=== PATIENT | male | born 1990 | race Caucasian/White ===

== ENCOUNTER 2016-07-10 05:14 | Emergency (ER) | payer SELFPAY ==
[~2016-07-10] VITALS: Ht 177.8 cm; Wt 72.0 kg
[~2016-07-10 05:14] MED LIST: ALBU6.7H INH; PRED20 PO; ZITH250T PO
[2016-07-10 05:17] VITALS: BP 119/77; PULSE 82; RESP 14; TEMP 98.1; O2SAT 99
[2016-07-10] MEDS ORDERED: SODIUM CHLOR 0.9% 1000 ML INJ 1,000 ML IV ONE ×2 (05:33→05:45)
[2016-07-10] MEDS ORDERED: PROCHLORPERAZINE INJ 10 MG/2 ML VIAL IVP ONE (05:45)
[2016-07-10] MEDS ORDERED: SODIUM CHLORIDE 0.9% FLUSH 5 ML FLUSH IVF PRN (05:45)
[2016-07-10] MEDS ORDERED: LIDOCAINE VISCOUS 2% SOLN 15 ML UDC PO ONE (05:45)
[2016-07-10] MEDS ORDERED: ALUMINUM/MAGNESIUM/SIMETH 30 ML CUP PO ONE (05:45)
[2016-07-10] MEDS ORDERED: ZOFR4TAB3 SL (05:47)
--- NOTE | 2016-07-10 05:48 | PD ---
HPI Chief Complaint: GI Complaint Time Seen by Provider: 05:28 Travel History International Travel<30 days: No Contact w/Intl Traveler<30days: No Traveled to known affect area: No History of Present Illness HPI 25-year-old male arrives with a few hours of nausea vomiting diarrhea. He's had no fever. Generalized abdominal pain is present. He ate [employer] twice yesterday. He was in contact with some sick young family members who have similar symptoms. The stool and emesis were nonbloody. PFSH Past Medical History ADHD: No Bipolar Disorder: Yes Cancer: No Cardiovascular Problems: No Diabetes: No Diminished Hearing: No Psychiatric: Yes (HISTORY OF BIPOLAR DISORDER.) Migraines: No Seizures: No Thyroid Disease: No Ulcer: No Past Surgical History Appendectomy: No Cholecystectomy: No Other Surgery: No Social History Alcohol Use: No Tobacco Use: Yes (1 PK DAILY) Substance Use: Yes (MELLO) Allergies-Medications (Allergen,Severity, Reaction): Coded Allergies: No Known Allergies (Verified , 07/10/16) Reported Meds & Prescriptions Reported Meds & Active Scripts Active Zofran Odt (Ondansetron Odt) 4 Mg Tab 4 Mg SL Q8HR PRN Review of Systems Except as stated in HPI: all other systems reviewed are Neg Physical Exam Narrative GENERAL: 25 yo F, WNWD, NAD SKIN: Warm and dry. HEAD: Atraumatic. Normocephalic. EYES: Pupils equal and round. No scleral icterus. No injection or drainage. ENT: No nasal bleeding or discharge. Mucous membranes pink and moist. NECK: Trachea midline. No JVD. CARDIOVASCULAR: Regular rate and rhythm. RESPIRATORY: No accessory muscle use. Clear to auscultation. Breath sounds equal bilaterally. GASTROINTESTINAL: Abdomen soft, non-tender, nondistended. Hepatic and splenic margins not palpable. MUSCULOSKELETAL: Extremities without clubbing, cyanosis, or edema. No obvious deformities. NEUROLOGICAL: Awake and alert. No obvious cranial nerve deficits. Motor grossly within normal limits. Five out of 5 muscle strength in the arms and legs. Normal speech. PSYCHIATRIC: Appropriate mood and affect; insight and judgment normal. Data Data Last Documented VS Vital Signs Date Time Temp Pulse Resp B/P Pulse Ox O2 Delivery O2 Flow Rate FiO2 07/10/16 05:17 98.1 82 14 119/77 99 Room Air VS noted Orders Iv Access Insert/Monitor (07/10/16 05:33) Oximetry (07/10/16 05:33) Sodium Chloride 0.9% Flush (Ns Flush) (07/10/16 05:45) Prochlorperazine Inj (Compazine Inj) (07/10/16 05:45) Sodium Chlor 0.9% 1000 Ml Inj (Ns 1000 M (07/10/16 05:33) Sodium Chlor 0.9% 1000 Ml Inj (Ns 1000 M (07/10/16 05:45) Al-Mag Hy-Si 40-40-4 Mg/Ml Liq (Mag-Al P (07/10/16 05:45) Lidocaine 2% Viscous (Xylocaine 2% Visco (07/10/16 05:45) MDM Medical Decision Making Medical Screen Exam Complete: Yes Emergency Medical Condition: Yes Medical Record Reviewed: Yes Differential Diagnosis Constipation, Gastritis, Acute Cholecystitis, Biliary Colic, Pancreatitis, DAMON , Hepatitis, Bowel Obstruction, Cystitis, Mesenteric Ischemia, AAA, Appendicitis , Renal Stone/Hydronephrosis, GERD, perforated viscous Narrative Course The patient received IV fluids and antiemetics. The patient is resting comfortably and feels better, is alert and in no distress. The patients results and examination findings were discussed. The repeat examination is unremarkable and benign. The history, exam, diagnostic testing, and current condition do not suggest any significant pathology to warrant further testing, continued ED treatment, admission, or surgical evaluation at this point. The vital signs have been stable. The patient does not have uncontrollable pain, intractable vomiting, or other significant symptoms. The patient's condition is stable and appropriate for discharge. The patient will pursue further outpatient evaluation with a primary care physician or other designated or consulting physician as indicated in the discharge instructions. The patient expressed understanding and was agreeable with this plan. Diagnosis Primary Impression: Nausea vomiting and diarrhea Referrals: Primary Care Physician call for appointment Additional Instructions: You have a choice when it comes to health care, and we are glad that you chose [facility]. Hopefully, we have met your expectations on today's visit. You are welcome to return to [facility] at any time, as we are committed to meeting the health care needs of our community. Med/Other Pt SpecificInfo: Prescription(s) given Scripts Ondansetron Odt (Zofran Odt)4 Mg Tab4 Mg SL Q8HR PRN (Nausea/Vomiting) #10 TAB Ref 0 Prov:Jef Ho MD 07/10/16 Disposition: 01 DISCHARGE HOME Condition: Stable Jef Ho MD Jul 10, 2016 05:48
[2016-07-10 06:49] VITALS: BP 124/89
== END 2016-07-10 06:49 | disposition home or self-care (01) ==
LOC: NEPC 05:14
DX: R11.2 Nausea with vomiting, unspecified (principal); R19.7 Diarrhea, unspecified; R10.84 Generalized abdominal pain; F17.200 Nicotine dependence, unspecified, uncomplicated; Z86.59 Personal history of other mental and behavioral disorders
CPT/HCPCS: 96361; 96374; 99283; J0780; J7030

== ENCOUNTER 2016-07-31 12:42 | Emergency (ER) | payer SELFPAY ==
[~2016-07-31] VITALS: Ht 177.8 cm; Wt 72.7 kg
[~2016-07-31 12:42] MED LIST changes: -ALBU6.7H INH; -PRED20 PO; -ZITH250T PO; +ZOFR4TAB3 SL
[2016-07-31 12:44] VITALS: BP 151/77; PULSE 88; RESP 20; TEMP 98.1; O2SAT 99
--- NOTE | 2016-07-31 14:30 | PD ---
HPI Chief Complaint: Anxiety Time Seen by Provider: 14:29 Travel History International Travel<30 days: No Contact w/Intl Traveler<30days: No Traveled to known affect area: No History of Present Illness HPI 25-year-old male with history anxiety presents to the emergency department for evaluation of what he believes was an anxiety attack. Patient states right now he feels "fine." He states he's been battling with anxiety lately. He has not sought any assistance in managing his anxiety. States sometimes he feels that he is losing his mind. Denies suicidal or homicidal ideations. Patient also makes mention some sinus congestion and posterior nasal drip over the last week. No fever or chills. No cough or chest congestion. Has no other symptoms to report History Past Medical Histgory Medical History: Denies Significant Hx Hx Cancer: No Social History Alcohol Use: No Tobacco Use: Yes (1 PK DAILY) Allergies-Medications (Allergen,Severity, Reaction): Coded Allergies: No Known Allergies (Verified , 07/10/16) Reported Meds & Prescriptions Reported Meds & Active Scripts Active Zofran Odt (Ondansetron Odt) 4 Mg Tab 4 Mg SL Q8HR PRN Review of Systems Except as stated in HPI: all other systems reviewed are Neg Physical Exam Narrative GENERAL: Well-nourished, well-developed male patient, ambulatory in no acute distress SKIN: Warm and dry. HEAD: Normocephalic. EYES: No scleral icterus. No injection or drainage. ENT: Mucosa pink and moist. No erythema or exudates. No uvular edema. No uvular , palatal, or tonsillar deviation. Airway patent. Nasal turbinates appear inflamed without nasal blood, purulent drainage or septal hematoma. NECK: Supple, trachea midline. No JVD or lymphadenopathy. CARDIOVASCULAR: Regular rate and rhythm without murmurs, gallops, or rubs. RESPIRATORY: Breath sounds equal bilaterally. No accessory muscle use. GASTROINTESTINAL: Abdomen soft, non-tender, nondistended. MUSCULOSKELETAL: No cyanosis, or edema. BACK: Nontender without obvious deformity. No CVA tenderness. Data Data Last Documented VS Vital Signs Date Time Temp Pulse Resp B/P Pulse Ox O2 Delivery O2 Flow Rate FiO2 07/31/16 12:44 98.1 88 20 151/77 99 Room Air MDM Medical Screen Exam Complete: Yes Emergency Medical Condition: No Differential Diagnosis anxiety; viral sinusitis Narrative Course 25-year-old male presents to emergency department for evaluation of a panic attack which has now resolved. At this time he appears well and without distress. He confirms that he has no current symptoms. At this time there are no urgent or emergent needs for medical intervention identified. A medical screening exam was performed: At the time of evaluation the presenting medical condition was determined not to be of an emergent nature. The patient was given the option of receiving additional care, but declined. Patient was given options for additional community resources from which to obtain care. The Patient Has Been advised to seek medical attention for their presenting complaint. The patient has been advised to return to the ER at any time if an emergent condition develops. Primary Impression: Encounter for medical screening examination Condition: Lalitha Haley Jul 31, 2016 14:30
== END 2016-07-31 14:37 | disposition left against medical advice (07) ==
LOC: NETRI 12:42
DX: F41.0 Panic disorder [episodic paroxysmal anxiety] (principal); F17.210 Nicotine dependence, cigarettes, uncomplicated
CPT/HCPCS: 99281

== ENCOUNTER 2017-01-03 05:35 | Emergency (ER) | payer SELFPAY ==
[~2017-01-03] VITALS: Ht 170.2 cm; Wt 76.0 kg
[2017-01-03 05:37] VITALS: BP 129/85; PULSE 73; RESP 16; TEMP 98.3; O2SAT 99
--- NOTE | 2017-01-03 05:58 | PD ---
HPI Chief Complaint: Anxiety Time Seen by Provider: 05:42 Travel History International Travel<30 days: No Contact w/Intl Traveler<30days: No Traveled to known affect area: No History of Present Illness HPI PATIENT COMES IN COMPLAINING OF PALPITATIONS AND ANXIOUSNESS. STATES THAT HE IS THE SOLE FINANCIAL "BREADWINNER" NOW THAT HIS MOM WAS DIAGNOSED WITH CANCER. HOWEVER DENIES SI/HI PFSH Past Medical History ADHD: No Bipolar Disorder: Yes Cancer: No Cardiovascular Problems: No Diabetes: No Diminished Hearing: No Psychiatric: Yes (HISTORY OF BIPOLAR DISORDER.) Migraines: No Seizures: No Thyroid Disease: No Ulcer: No Past Surgical History Surgical History: No Previous Surgery Appendectomy: No Cholecystectomy: No Other Surgery: No Social History Alcohol Use: No Tobacco Use: Yes (1 PK DAILY) Substance Use: Yes (MELLO) Allergies-Medications (Allergen,Severity, Reaction): Coded Allergies: No Known Allergies (Verified , 01/03/17) Reported Meds & Prescriptions Reported Meds & Active Scripts Active Zofran Odt (Ondansetron Odt) 4 Mg Tab 4 Mg SL Q8HR PRN Review of Systems Psychiatric: Positive: Anxiety Physical Exam Narrative GENERAL: SKIN: Warm and dry. HEAD: Atraumatic. Normocephalic. EYES: Pupils equal and round. No scleral icterus. No injection or drainage. ENT: No nasal bleeding or discharge. Mucous membranes pink and moist. NECK: Trachea midline. No JVD. CARDIOVASCULAR: Regular rate and rhythm. BUT TACHYCARDIC RESPIRATORY: No accessory muscle use. Clear to auscultation. Breath sounds equal bilaterally. GASTROINTESTINAL: Abdomen soft, non-tender, nondistended. Hepatic and splenic margins not palpable. MUSCULOSKELETAL: Extremities without clubbing, cyanosis, or edema. No obvious deformities. NEUROLOGICAL: Awake and alert. No obvious cranial nerve deficits. Motor grossly within normal limits. Five out of 5 muscle strength in the arms and legs. Normal speech. PSYCHIATRIC: ANXIOUS, BUT insight and judgment normal. Data Data Last Documented VS Vital Signs Date Time Temp Pulse Resp B/P Pulse Ox O2 Delivery O2 Flow Rate FiO2 01/03/17 05:45 119 16 01/03/17 05:37 98.3 129/85 99 Orders Electrocardiogram (01/03/17 05:43) Complete Blood Count With Diff (01/03/17 05:43) Comprehensive Metabolic Panel (01/03/17 05:43) Urinalysis - C+S If Indicated (01/03/17 05:43) Thyroid Stimulating Hormone (01/03/17 05:43) Chest, Single Ap (01/03/17 05:43) Drug Screen, Random Urine (01/03/17 05:43) Alcohol (Ethanol) (01/03/17 05:43) Salicylates (Aspirin) (01/03/17 05:43) Tylenol (Acetaminophen) (01/03/17 05:43) Sodium Chlor 0.9% 1000 Ml Inj (Ns 1000 M (01/03/17 06:00) Lorazepam Inj (Ativan Inj) (01/03/17 06:00) Labs Laboratory Tests Test 01/03/17 06:00 White Blood Count 12.0 TH/MM3 Red Blood Count 5.08 MIL/MM3 Hemoglobin 15.3 GM/DL Hematocrit 43.8 % Mean Corpuscular Volume 86.3 FL Mean Corpuscular Hemoglobin 30.1 PG Mean Corpuscular Hemoglobin 34.9 % Concent Red Cell Distribution Width 12.5 % Platelet Count 231 TH/MM3 Mean Platelet Volume 9.4 FL Neutrophils (%) (Auto) 48.3 % Lymphocytes (%) (Auto) 39.3 % Monocytes (%) (Auto) 7.4 % Eosinophils (%) (Auto) 4.1 % Basophils (%) (Auto) 0.9 % Neutrophils # (Auto) 5.8 TH/MM3 Lymphocytes # (Auto) 4.7 TH/MM3 Monocytes # (Auto) 0.9 TH/MM3 Eosinophils # (Auto) 0.5 TH/MM3 Basophils # (Auto) 0.1 TH/MM3 CBC Comment DIFF FINAL Differential Comment Urine Color YELLOW Urine Turbidity CLEAR Urine pH 6.0 Urine Specific [place] 1.038 Urine Protein 30 mg/dL Urine Glucose (UA) NEG mg/dL Urine Ketones NEG mg/dL Urine Occult Blood NEG Urine Nitrite NEG Urine Bilirubin NEG Urine Urobilinogen 2.0 MG/DL Urine Leukocyte Esterase NEG Urine RBC 1 /hpf Urine WBC 2 /hpf Urine Squamous Epithelial <1 /hpf Cells Urine Calcium Oxalate Crystals OCC /hpf Urine Bacteria RARE /hpf Urine Mucus FEW /lpf Microscopic Urinalysis Comment CULT NOT INDICATED Sodium Level 139 MEQ/L Potassium Level 3.4 MEQ/L Chloride Level 106 MEQ/L Carbon Dioxide Level 24.7 MEQ/L Anion Gap 8 MEQ/L Blood Urea Nitrogen 12 MG/DL Creatinine 1.16 MG/DL Estimat Glomerular Filtration 76 ML/MIN Rate Random Glucose 108 MG/DL Calcium Level 8.7 MG/DL Total Bilirubin 0.5 MG/DL Aspartate Amino Transf 26 U/L (AST/SGOT) Alanine Aminotransferase 35 U/L (ALT/SGPT) Alkaline Phosphatase 64 U/L Total Protein 7.0 GM/DL Albumin 4.1 GM/DL Thyroid Stimulating Hormone 0.959 uIU/ML 3rd Gen Salicylates Level 2.0 MG/DL Urine Opiates Screen NEG Acetaminophen Level LESS THAN 2.0 MCG/ML Urine Barbiturates Screen NEG Urine Amphetamines Screen NEG Urine Benzodiazepines Screen NEG Urine Cocaine Screen NEG Urine Cannabinoids Screen POS Ethyl Alcohol Level LESS THAN 3 MG/DL MDM Medical Decision Making Medical Screen Exam Complete: Yes Emergency Medical Condition: Yes Medical Record Reviewed: Yes Interpretation(s) NSR 73, LOLI PATTERN, NO STEMI PATTERN NOTED Differential Diagnosis STRESS REACTION V HYPERTHYROID V DEHYDRATION V ABNL ELECTROLYTE V ANEMIA Narrative Course PATIENT HAS NORMAL LABS, INCLUDING CBC, TSH AND BMP...PATIENT IMPROVED GREATLY WITH ATIVAN AND IVF. DUE TO CIRCUMSTANCES PATIENT HAS STRESS REACTION WITHOUT PSYCHOSIS NOR ANY SI/HI. WILL D/C AND RECC COUNSELING Diagnosis Primary Impression: STRESS REACTION Patient Instructions: Anxiety (ED), General Instructions Disposition: 01 DISCHARGE HOME Condition: Stable Gino Moralez MD Jan 03, 2017 05:58
[2017-01-03] MEDS ORDERED: LORazepam 2 MG/ML VIAL IV PUSH ONE (06:00)
[2017-01-03] MEDS ORDERED: SODIUM CHLOR 0.9% 1000 ML INJ 1,000 ML IV ONE (06:00)
[2017-01-03 06:30] LABS: AUTOMATED NEUTROPHIL # 5.8 TH/MM3 (1.8-7.7); BASOPHIL # 0.1 TH/MM3 (0-0.2); BASOPHIL % 0.9 % (0.0-2.0); EOSINOPHIL # 0.5 TH/MM3 (0-0.4); EOSINOPHIL % 4.1 % (0.0-4.0); HEMATOCRIT 43.8 % (39.0-51.0); HEMO FLAGS DIFF FINAL; LYMPH % 39.3 % (9.0-44.0); LYMPHOCYTE # 4.7 TH/MM3 (1.0-4.8); MEAN CELL VOLUME 86.3 FL (80.0-100.0); MEAN CORPUSCULAR HEMOGLOBIN 30.1 PG (27.0-34.0); MEAN CORPUSCULAR HGB CONC 34.9 % (32.0-36.0); MONO % 7.4 % (0.0-8.0); NEUT % 48.3 % (16.0-70.0); PLATELET COUNT 231 TH/MM3 (150-450); RED BLOOD COUNT 5.08 MIL/MM3 (4.50-5.90); RED CELL DISTRIBUTION WIDTH 12.5 % (11.6-17.2)
--- NOTE | 2017-01-03 06:46 | RADRPT ---
EXAM DATE/TIME: 01/03/2017 06:09 [facility] COMPARISON: No previous studies available for comparison. INDICATIONS : Palpitations. MEDICAL HISTORY : None. SURGICAL HISTORY : None. ENCOUNTER: Initial ACUITY: 1 day PAIN SCORE: 0/10 LOCATION: Bilateral chest FINDINGS: A single view of the chest demonstrates the lungs to be symmetrically aerated without evidence of mas s, infiltrate or effusion. The cardiomediastinal contours are unremarkable. Osseous structures are intact. CONCLUSION: The lungs are clear. Jamal Caputo MD on January 03, 2017 at 6:45 Board Certified Radiologist. This report was verified electronically.
[2017-01-03 06:51] LABS: ANION GAP 8 MEQ/L (5-15); AST (GOT) 26 U/L (15-37); BICARBONATE 24.7 MEQ/L (21.0-32.0); BLOOD UREA NITROGEN 12 MG/DL (7-18); CHLORIDE 106 MEQ/L (98-107); GLOMERULAR FILTRATION RATE 76 ML/MIN (>89); POTASSIUM 3.4 MEQ/L (3.5-5.1); SODIUM (NA) 139 MEQ/L (136-145)
[2017-01-03 06:52] LABS: ALT (GPT) 35 U/L (12-78)
[2017-01-03 06:54] LABS: BACTERIA, URINE RARE /hpf; BLOOD, URINE NEG (NEG); CALCIUM OXALATE CRYSTALS,URINE OCC /hpf; COMMENT (UR) CULT NOT INDICATED; CULTURE IF INDICATED CULT NOT INDICATED; GLUCOSE,URINE NEG (NEG); KETONE, URINE NEG (NEG); MUCUS URINE FEW /lpf (OCC); NITRITE,URINE NEG (NEG); SQUAMOUS EPITHELIAL CELL URINE <1 /hpf (0-5); URINE COLOR YELLOW (YELLW/STRAW)
[2017-01-03 07:02] LABS: ACETAMINOPHEN LESS THAN 2.0 MCG/ML (10.0-30.0); ALKALINE PHOSPHATASE 64 U/L (45-117); TOTAL BILIRUBIN ADULT 0.5 MG/DL (0.2-1.0)
[2017-01-03 07:09] LABS: AMPHETAMINE, URINE NEG (NEG); BARBITURATES, URINE NEG (NEG); COCAINE, URINE NEG (NEG)
--- NOTE | 2017-01-03 23:02 | EKG ---
Date Performed: 01/03/2017 Time Performed: 06:15:16 PTAGE: 26 years EKG: Sinus rhythm POSSIBLE LEFT ATRIAL ENLARGEMENT ST ELEVATION, PROBABLY EARLY REPOLARIZATION BORDERLINE ECG PREVIOUS TRACING : 03/06/2014 19.38 Compared to prior tracing no significant change DOCTOR: Abigail Arredondo Interpretating Date/Time 01/03/2017 23:00:10
== END 2017-01-03 07:50 | disposition home or self-care (01) ==
LOC: NEPC 05:35
DX: F43.9 Reaction to severe stress, unspecified (principal); F31.9 Bipolar disorder, unspecified; R00.2 Palpitations; F17.200 Nicotine dependence, unspecified, uncomplicated; Z79.899 Other long term (current) drug therapy
CPT/HCPCS: 71010; 80053; 80307; 81001; 84443; 85025; 93005; 96374; 99285; J2060; J7030